=== PATIENT | female | born 1990 | race African-American/Black ===

== ENCOUNTER 2023-12-06 15:36 | Emergency (ER) | payer OTHER ==
[~2023-12-06] VITALS: Ht 160 cm; Wt 91.0 kg
[2023-12-06 16:17] VITALS: BP 153/92; PULSE 78; RESP 18; TEMP 98.5; O2SAT 100
== END 2023-12-06 18:07 | disposition home or self-care (01) ==
LOC: ER 15:36
DX: T16.2XXA Foreign body in left ear, initial encounter (principal); W44.9XXA Unspecified foreign body entering into or through a natural orifice, initial encounter; Y93.89 Activity, other specified; Y92.89 Other specified places as the place of occurrence of the external cause; Y99.8 Other external cause status
CPT/HCPCS: 69200; 99284

== ENCOUNTER 2025-02-17 08:15 | Emergency (ER) | payer OTHER ==
[~2025-02-17] VITALS: Ht 149.9 cm; Wt 111.0 kg
[2025-02-17 08:25] VITALS: O2SAT 100
[2025-02-17] MEDS: ACETAMINOPHEN 325MG TABLET PO ONE (09:28)
[2025-02-17] MEDS ORDERED: IBUP-2028 MT (09:54)
[2025-02-17] MEDS ORDERED: LIDO-53 TP (09:54)
[2025-02-17] MEDS ORDERED: METH-653 MT (09:54)
[2025-02-17 10:07] VITALS: BP 161/72; PULSE 69; RESP 17; TEMP 36.7; O2SAT 100
== END 2025-02-17 10:09 | disposition home or self-care (01) ==
LOC: ER 08:15
DX: S46.912A Strain of unspecified muscle, fascia and tendon at shoulder and upper arm level, left arm, initial encounter (principal); Z79.899 Other long term (current) drug therapy; Z98.890 Other specified postprocedural states; X58.XXXA Exposure to other specified factors, initial encounter; Y93.89 Activity, other specified; Y92.89 Other specified places as the place of occurrence of the external cause; Y99.8 Other external cause status
CPT/HCPCS: 73030; 99283